=== PATIENT | male | born 1945 | race Caucasian/White ===

== ENCOUNTER 2017-05-21 22:36 | Emergency (ER) | payer MEDICARE, OTHER, BC ==
[~2017-05-21] VITALS: Ht 172.7 cm; Wt 109.5 kg
[~2017-05-21 22:36] MED LIST: ASPIRIN 32325 MG/TAB PO; CARDI-OMEGA1000 MG PO; DIABETA 5MG5 MG/TAB PO; GLUCOPHAGE500 MG/TAB PO; HCTZ 25MG TAB25 MG PO; LIPITOR 80MG80 MG PO; LOPRESSOR 225 MG/TAB PO; MIRALAX PA17 GM/Dose PO; NORVASC 10MG10 MG PO; PLAVIX 75MG TAB75 MG PO; PRINIVIL40 MG PO; TENORMIN 5050 MG/TAB PO
[2017-05-21 22:43] VITALS: TEMP 97
[2017-05-21] MEDS ORDERED: NITRO-DUR0.4 MG/PAT TD (23:09)
[2017-05-21] MEDS ORDERED: DEPAKENE250 MG PO (23:10)
[2017-05-21] MEDS ORDERED: LASIX 20MG TABL20 MG PO (23:10)
[2017-05-21] MEDS ORDERED: VITAMIN C500 MG PO (23:11)
[2017-05-21] MEDS ORDERED: MELAT3MGTAB (23:11)
[2017-05-21] MEDS ORDERED: LEVEMIR100 U/ML SQ (23:12)
[2017-05-21 23:40] LABS: BASO # 0.1 (0.0-0.2); BASO % 0.6 % (0.0-2.0); EOS # 0.4 (0.0-0.7); EOS % 4.1 % (0-4.0); GRAN # 5.1 (1.4-6.5); GRAN % 49.8 % (42.2-75.2); HEMOGLOBIN 14.2 g/dl (13.5-18.0); LYMPH # 3.7 (1.2-3.4); LYMPH % 36.3 % (20.0-51.0); MEAN CELL VOLUME 92 fl (80.0-100.0); MEAN CORPUSCULAR HEMOGLOBIN 30 pg (27.0-31.0); MEAN CORPUSCULAR HGB CONC 32 g/dl (33.0-37.0); MONO # 0.9 (0.1-0.6); MONO % 8.9 % (1.7-9.3); PLATELET COUNT 242 K/mm3 (130-400); REDCELL DISTRIBUTION WIDTH-CV 14.4 % (11.5-14.5)
[2017-05-22] LABS: ALBUMIN 4.4 gm/dL (3.5-5.0); BILIRUBIN,TOTAL 0.4 mg/dL (0.0-1.0); C-REACTIVE PROTEIN 0.6 mg/dL (0.0-0.9); CALCIUM 9.9 mg/dL (8.4-10.2); CREATININE, serum 1.1 mg/dL (0.66-1.25); POTASSIUM 5.4 mmol/L (3.4-5.0); TOTAL PROTEIN 7.6 gm/dL (6.4-8.2)
[2017-05-22] MEDS ORDERED: NORCO 325 MG-51 TAB PO (02:15)
[2017-05-22] MEDS ORDERED: VOLTAREN 75 DR75 MG PO (02:15)
[2017-05-22 02:30] VITALS: BP 140/79; PULSE 58
[2017-05-22] MEDS ORDERED: PERCOCET 325 MG1 TA3 PO (19:50)
== END 2017-05-22 02:38 | disposition home or self-care (01) ==
LOC: COL.ER 22:36
PROVIDERS: Emergency Medicine
DX: M54.5 Low back pain (principal); E11.65 Type 2 diabetes mellitus with hyperglycemia; E87.5 Hyperkalemia; I10 Essential (primary) hypertension; E78.5 Hyperlipidemia, unspecified; Z95.5 Presence of coronary angioplasty implant and graft; Z86.73 Personal history of transient ischemic attack (TIA), and cerebral infarction without residual deficits; Z87.891 Personal history of nicotine dependence; Z79.82 Long term (current) use of aspirin; Z79.4 Long term (current) use of insulin
CPT/HCPCS: J1815; J1885; J2360; J2765; J3010; J7040

== ENCOUNTER 2017-05-22 18:02 | Emergency (ER) | payer MEDICARE, OTHER, BC ==
[~2017-05-22] VITALS: Ht 188 cm; Wt 109.5 kg
[~2017-05-22 18:02] MED LIST changes: +DEPAKENE250 MG PO; +LASIX 20MG TABL20 MG PO; +LEVEMIR100 U/ML SQ; +MELAT3MGTAB; +NITRO-DUR0.4 MG/PAT TD; +NORCO 325 MG-51 TAB PO; +VITAMIN C500 MG PO; +VOLTAREN 75 DR75 MG PO
[2017-05-22 18:11] VITALS: TEMP 97
[2017-05-22 19:01] LABS: BASO # 0.1 (0.0-0.2); BASO % 0.4 % (0.0-2.0); EOS # 0.5 (0.0-0.7); EOS % 4.1 % (0-4.0); HEMATOCRIT 41.3 % (42.0-52.0); HEMOGLOBIN 13.5 g/dl (13.5-18.0); LYMPH # 3.9 (1.2-3.4); LYMPH % 33.4 % (20.0-51.0); MEAN CELL VOLUME 92 fl (80.0-100.0); MEAN CORPUSCULAR HEMOGLOBIN 30 pg (27.0-31.0); MEAN CORPUSCULAR HGB CONC 33 g/dl (33.0-37.0); MEAN PLATELET VOLUME 9.9 fl (7.4-10.4); MONO # 1.1 (0.1-0.6); MONO % 9.8 % (1.7-9.3); PLATELET COUNT 217 K/mm3 (130-400); RED BLOOD COUNT 4.48 M/mm3 (4.20-5.60); REDCELL DISTRIBUTION WIDTH-CV 14.6 % (11.5-14.5)
[2017-05-22 19:14] LABS: COLLECTION METHOD CLEAN CATCH
[2017-05-22 19:21] LABS: ALBUMIN 4.1 gm/dL (3.5-5.0); BILIRUBIN,TOTAL 0.4 mg/dL (0.0-1.0); C-REACTIVE PROTEIN 0.6 mg/dL (0.0-0.9); CALCIUM 9.4 mg/dL (8.4-10.2); CREATININE, serum 1.22 mg/dL (0.66-1.25); POTASSIUM 4.4 mmol/L (3.4-5.0); TOTAL PROTEIN 7.1 gm/dL (6.4-8.2)
[2017-05-22 19:21] LABS: HYALINE CAST >12 /lpf; MUCOUS Present /lpf; PH 5 (5-8); SQUAMOUS EPITHELIAL 0-2 /hpf; URINE APPEARANCE Clear; URINE BACTERIA None Seen /hpf; URINE BILIRUBIN Negative (NEGATIVE); URINE BLOOD Negative (NEGATIVE); URINE COLOR Yellow; URINE GLUCOSE 2+ (NEGATIVE); URINE KETONE Negative (NEGATIVE); URINE LEUKOCYTE ESTERASE Negative (NEGATIVE); URINE NITRATE Negative (NEGATIVE); URINE PROTEIN(semi-quant) Negative (NEGATIVE); URINE UROBILINOGEN Negative (NEGATIVE)
[2017-05-22] MEDS ORDERED: PERCOCET 325 MG1 TA3 PO (19:50)
[2017-05-22 20:43] VITALS: PULSE 76
== END 2017-05-22 20:43 | disposition home or self-care (01) ==
LOC: COL.ER 18:02
PROVIDERS: Family Medicine
DX: M54.5 Low back pain (principal); I48.91 Unspecified atrial fibrillation; E11.9 Type 2 diabetes mellitus without complications; I10 Essential (primary) hypertension; Z86.73 Personal history of transient ischemic attack (TIA), and cerebral infarction without residual deficits; Z79.82 Long term (current) use of aspirin; Z79.4 Long term (current) use of insulin
CPT/HCPCS: J1170; J2405; J2550; J7030

== ENCOUNTER 2024-02-16 18:15 | Emergency (ER) | payer MEDICARE, BC ==
[~2024-02-16] VITALS: Ht 188 cm; Wt 109.5 kg
[~2024-02-16 18:15] MED LIST changes: +PERCOCET 325 MG1 TA3 PO
[2024-02-16 18:25] VITALS: TEMP 97.7
[2024-02-16] MEDS ORDERED: Acetaminophen 325 MG TAB PO ONE (19:45)
[2024-02-16] MEDS ORDERED: Ketorolac 60 MG/2 ML VIAL IM ONE (19:45)
[2024-02-16] MEDS ORDERED: Cyclobenzaprine 10 MG TAB PO ONE (19:45)
[2024-02-16] MEDS ORDERED: FLEXERIL 1010 MG/TAB PO (20:33)
[2024-02-16 20:50] VITALS: BP 176/84; PULSE 67
== END 2024-02-16 20:45 | disposition home or self-care (01) ==
LOC: COL.ER 18:15
DX: M62.830 Muscle spasm of back (principal); Z95.9 Presence of cardiac and vascular implant and graft, unspecified
CPT/HCPCS: J1885

== ENCOUNTER 2024-02-27 15:36 | Inpatient (IN) | payer MEDICARE, BC ==
[~2024-02-27] VITALS: Ht 5.1 cm; Wt 112.0 kg
--- NOTE | 2024-02-27 00:15 | NUR ---
Did talk to David MOORE about med rec/ ER said it was completed but when i was finally able to look at it , it was not correct according to [place] records-- changed and corrected at this time, it did then change some of the meds the had already ordered-- Dr ok to change according to [place] med record. Also asked about blood sugars since pt is diabetic, ordered ac/hs,, I did get a blood sugar earlier and it was 64/pt was already eating a sandwich /pudding-did not have supper-- repeat was 100. David MOORE aware.
[~2024-02-27 15:36] MED LIST changes: +FLEXERIL 1010 MG/TAB PO
[2024-02-27] MEDS ORDERED: fentaNYL 50 MCG/ML 2 ML VIAL IV ONE ×2 (15:45→17:45)
[2024-02-27] MEDS ORDERED: NS 1,000 ML IV ONE (15:45)
[2024-02-27 16:40] LABS: BASO % 0.3 % (0.0-2.0); EOS # 0.3 K/mm3 (0.0-0.7); GRAN # 5.7 K/mm3 (1.4-6.5); GRAN % 54.5 % (42.2-75.2); HEMATOCRIT 38.5 % (42.0-52.0); HEMOGLOBIN 12.7 g/dl (13.5-18.0); LYMPH # 3.4 K/mm3 (1.2-3.4); MEAN CELL VOLUME 91 fl (80.0-100.0); MEAN CORPUSCULAR HEMOGLOBIN 30 pg (27-31); MEAN CORPUSCULAR HGB CONC 33 g/dl (33.0-37.0); MEAN PLATELET VOLUME 9.6 fl (7.4-10.4); MONO % 9.9 % (1.7-9.3); PLATELET COUNT 204 K/mm3 (130-400); RED BLOOD COUNT 4.24 M/mm3 (4.20-5.60); REDCELL DISTRIBUTION WIDTH-CV 16.2 % (11.5-14.5)
[2024-02-27 16:44] LABS: INR 2.5 (0.8-3.0); PROTHROMBIN TIME 26.6 SECONDS (9.7-12.8)
[2024-02-27 17:02] LABS: COLLECTION METHOD CLEAN CATCH
[2024-02-27 17:03] LABS: ALBUMIN 3.6 g/dL (3.4-4.8); BILIRUBIN,TOTAL 0.5 mg/dL (0.2-1.2); CALCIUM 9.7 mg/dL (8.4-10.2); CREATININE, serum 1.41 mg/dL (0.72-1.25); POTASSIUM 4.7 mEq/L (3.5-4.5); TOTAL PROTEIN 7.2 g/dl (6.2-8.1)
[2024-02-27 17:09] LABS: TROPONIN-I 0.025 ng/mL (0.00-0.033)
[2024-02-27 17:12] LABS: PH 5.5 (5.0-8.5); URINE APPEARANCE CLEAR (CLEAR/HAZY); URINE BLOOD 1+ (NEGATIVE); URINE COLOR YELLOW (YELLOW); URINE GLUCOSE NEGATIVE (NEGATIVE); URINE KETONE NEGATIVE (NEGATIVE); URINE NITRATE NEGATIVE (NEGATIVE); URINE PROTEIN(semi-quant) TRACE (NEGATIVE); URINE UROBILINOGEN 0.2 E.U/dL (0.2-1.0)
[2024-02-27] MEDS ORDERED: cefTRIAXone 1 G in Water For Injection,Sterile 10 ML IV ONE (17:30)
[2024-02-27] MEDS ORDERED: COREG12.5 MG PO (18:29)
[2024-02-27] MEDS ORDERED: XARELTO15 MG PO (18:39)
[2024-02-27] MEDS ORDERED: ZETIA 10MG TAB10 MG PO (18:40)
[2024-02-27] MEDS ORDERED: FLOMAX 0.40.4 MG/CAP PO (18:40)
[2024-02-27] MEDS ORDERED: FLEXERIL 1010 MG/TAB PO (18:41)
[2024-02-27] MEDS ORDERED: LANTUS100 U/ML SQ (18:42)
[2024-02-27] MEDS ORDERED: Melatonin 3 MG TAB PO PRN (18:45)
[2024-02-27] MEDS ORDERED: Ondansetron 4 MG/2 ML VIAL IV PRN (18:45)
[2024-02-27] MEDS ORDERED: fentaNYL 50 MCG/ML 2 ML VIAL IV PRN (18:45)
[2024-02-27] MEDS ORDERED: hydrALAZINE 20 MG/ML 1 ML VIAL IV PRN (19:00)
[2024-02-27] MEDS ORDERED: Ketorolac 15 MG/ML VIAL IV SCH (20:00)
[2024-02-27 20:31] VITALS: BP 168/92; PULSE 79; TEMP 97.6
[2024-02-27] MEDS ORDERED: Famotidine 20 MG TAB PO SCH (21:00)
[2024-02-27] MEDS ORDERED: Methocarbamol 750 MG TAB PO SCH (21:00)
[2024-02-27] MEDS ORDERED: Atorvastatin 80 MG TAB PO SCH (21:00)
[2024-02-27] MEDS ORDERED: Carvedilol 6.25 MG TAB PO SCH (21:00)
--- NOTE | 2024-02-27 21:00 | NUR ---
Admitted to medical floor from ER, VSS, B/P slightly high - will give something for pain and also has b/p med to be given. Apresoline not given at this time- will wait for next B/P. Alert,oriented x4, pleasant, speech slightly slurred, has had stroke in the past and right side is very weak/flaccid,, lives at [facility] and uses jayson lift to sit up in chair . States his back pain is 5 /10 with any movement- does moan with any turning. Has skin tear to left elbow-mepilex on, coccyx is slightly red with some flaking skin, no open areas, various bruises to arms. has edema to lower extremities. using urinal to void. glasses at bedside.
[2024-02-27 22:00] VITALS: BP_SYST 168
[2024-02-27] MEDS ORDERED: ASPIRIN 81M81 MG/TA2 PO (23:02)
[2024-02-27] MEDS ORDERED: K-TAB20 PO (23:07)
[2024-02-27] MEDS ORDERED: TYLENOL 500MG500 MG PO (23:14)
[2024-02-27 23:57] VITALS: BP 143/80; PULSE 68; TEMP 97.9
[2024-02-28] VITALS (11 sets, daily range): BP systolic 143–169; BP diastolic 76–84; PULSE 58–69; TEMP 97.4–97.9
[2024-02-28] MEDS ORDERED: Dextrose (Glucose) 15 GM (4 x 3.75 GM) Chewable TABLET PACK PO PRN (00:45)
[2024-02-28] MEDS ORDERED: Glucagon 1 MG VIAL IM PRN (00:45)
[2024-02-28] MEDS ORDERED: Dextrose 50% Water 25 GM/50 ML SYRINGE IV PRN (00:45)
--- NOTE | 2024-02-28 06:00 | NUR ---
Overall had a good night- VSS, thought he needed to have a bowel movement , did put him on bedpan but no results,, getting Toradol IV and fentanyl IV as needed for back pain, voiding well per urinal.
[2024-02-28 06:27] LABS: BASO % 0.4 % (0.0-2.0); EOS # 0.3 K/mm3 (0.0-0.7); GRAN # 5.1 K/mm3 (1.4-6.5); GRAN % 55.2 % (42.2-75.2); HEMOGLOBIN 11.5 g/dl (13.5-18.0); LYMPH # 2.8 K/mm3 (1.2-3.4); LYMPH % 30.5 % (20.0-51.0); MEAN CELL VOLUME 89 fl (80.0-100.0); MEAN CORPUSCULAR HEMOGLOBIN 30 pg (27-31); MEAN CORPUSCULAR HGB CONC 34 g/dl (33.0-37.0); MEAN PLATELET VOLUME 9.5 fl (7.4-10.4); MONO % 10.7 % (1.7-9.3); PLATELET COUNT 179 K/mm3 (130-400); RED BLOOD COUNT 3.87 M/mm3 (4.20-5.60)
[2024-02-28 06:41] LABS: CALCIUM 9.1 mg/dL (8.4-10.2); CREATININE, serum 1.21 mg/dL (0.72-1.25); POTASSIUM 4.4 mEq/L (3.5-4.5)
[2024-02-28 06:42] LABS: HEMATOCRIT 34.3 % (42.0-52.0)
[2024-02-28] MEDS ORDERED: Insulin Lispro (HumaLOG) SQ SCH (08:00)
--- NOTE | 2024-02-28 08:41 | NUR ---
Patient resting in bed, hygiene is provided by CNAs, alert and oriented x 4, VSS. States pain in his pietro /, scheduled med given. Assessment compelted, meds given. No further needs at this time. Awaiting for breakfast. Call light within reach.
[2024-02-28] MEDS ORDERED: amLODIPine 5 MG TAB PO SCH (09:00)
[2024-02-28] MEDS ORDERED: Rivaroxaban 15 MG TAB PO SCH (09:00)
[2024-02-28] MEDS ORDERED: Aspirin 325 MG TAB PO SCH (09:00)
[2024-02-28] MEDS ORDERED: amLODIPine 10 MG TAB PO SCH (09:00)
[2024-02-28] MEDS ORDERED: Furosemide 20 MG TAB PO SCH (09:00)
[2024-02-28] MEDS ORDERED: Lidocaine 4% Topical Patch TP SCH (09:58)
[2024-02-28] MEDS ORDERED: traMADol 50 MG TAB PO PRN (10:15)
--- NOTE | 2024-02-28 10:36 | NUR ---
SW met with patient to complete intake and discuss discharge planning. Patient confirmed that he resides at [facility]; his PCP care is with [place] but could not recall PCP and [facility]. Patient is currently is [place] (Leslye Bird [phone]) she was available via phone she confirmed that he does use wheelchair, and has a lift at home but she does not recall them having a the [place] [facility]. Patient needs assisted with his ADLs. Patient and his both report no DPOA was provided information about forms with hospital if interested. Current plan at discharge is back to [facility] pending further medical recommendations.
--- NOTE | 2024-02-28 12:34 | NUR ---
Data: Patient's Daughter Maritza accepted spiritual care visit offered during Glass Bulb Machine Adjuster rounds. Son Lj also visiting. Life review. 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 Assessment: Patient emotional at time, but overall seemed grateful for the visit. Plan of Care: Glass Bulb Machine Adjuster provided supportive listening; a devotional; a bible; scripture reading; and prayer. Chaplains will remain available as needed/requested while Patient is admitted to this hospital. All three thanked Glass Bulb Machine Adjuster for the visit.
[2024-02-28] MEDS ORDERED: Acetaminophen 325 MG TAB PO SCH (14:00)
--- NOTE | 2024-02-28 14:59 | NUR ---
Patient resting in bed, watching TV. States pain 7/10. Scheduled pain med provided.
[2024-02-28] MEDS ORDERED: cefTRIAXone 2 G in Water For Injection,Sterile 20 ML IV SCH (18:00)
--- NOTE | 2024-02-28 19:20 | NUR ---
Patient has been stable along the day. Getting his schedule pain meds and antibiotics. Right now watching TV. Report given to BRUCE Jacobs.
--- NOTE | 2024-02-28 20:30 | NUR ---
Initial shift assessment done- states back pain 09/18, due for toradol and tylenol at this time, states it is overall getting better, voiding per urinal -clear yellow urine. denies need for HS snack tonight- watching some TV.
[2024-02-29] VITALS (14 sets, daily range): BP systolic 130–174; BP diastolic 74–96; PULSE 66–89; TEMP 97.4–98.2
--- NOTE | 2024-02-29 02:30 | NUR ---
Has not slept at all tonight, doing games on his tablet/no requests, was concerned about his wheelchair?, I told him there was no wheel chair when he was admitted the previous night . Pt was a little confused about when he came to hospital//reoriented - Did get another dose of Toradol IV as ordered and also was given apresoline for B/P 167/75.
[2024-02-29 06:19] LABS: BASO % 0.3 % (0.0-2.0); EOS # 0.3 K/mm3 (0.0-0.7); EOS % 3.1 % (0.0-4.0); GRAN # 6.4 K/mm3 (1.4-6.5); GRAN % 62.3 % (42.2-75.2); HEMATOCRIT 38.3 % (42.0-52.0); HEMOGLOBIN 12.7 g/dl (13.5-18.0); LYMPH # 2.5 K/mm3 (1.2-3.4); LYMPH % 24.6 % (20.0-51.0); MEAN CELL VOLUME 89 fl (80.0-100.0); MEAN CORPUSCULAR HEMOGLOBIN 30 pg (27-31); MEAN CORPUSCULAR HGB CONC 33 g/dl (33.0-37.0); MEAN PLATELET VOLUME 10.3 fl (7.4-10.4); MONO % 9.5 % (1.7-9.3); PLATELET COUNT 181 K/mm3 (130-400); RED BLOOD COUNT 4.29 M/mm3 (4.20-5.60); REDCELL DISTRIBUTION WIDTH-CV 16.2 % (11.5-14.5)
[2024-02-29 06:37] LABS: CALCIUM 9.5 mg/dL (8.4-10.2); CREATININE, serum 1.18 mg/dL (0.72-1.25); POTASSIUM 4.4 mEq/L (3.5-4.5)
--- NOTE | 2024-02-29 07:00 | NUR ---
PT RESTING IN BED. PT IS ON RA. PT IS NON TELE. PT IS ALERT BUT CONFUSED. PT REORIENTED. PT IS A FALL RISK AND IN FALL PRECAUTIONS. BEDALARM ACTIVE.
[2024-02-29] MEDS ORDERED: Acetaminophen 500 MG TAB PO SCH (14:00)
--- NOTE | 2024-02-29 17:35 | NUR ---
1340-SPOKE WITH GEOFF MOORE REGARDING PTS AMS AND CONFUSION. PT IS AXOX2-3 BUT FORGETFUL OF LOCATION AND SITUATION. PT FREQUENTLY REORIENTED. FALL PRECAUTIONS IN PLACE. DISCUSSED HIS PAIN MEDIATIONS. ORDERS CHANGED BY GEOFF MOORE.
--- NOTE | 2024-02-29 21:46 | NUR ---
Patient assessed around 1999. Alert and oriented, and able to make needs known. Reports level 8 pain to back. Given scheduled medications and PRN Ultram as requested. Denies SOB and dyspnea. LS CTA in upper lobes, diminished in lower. HRR. BSAx4. Voices no questions, needs, or concerns at this time. In bed with call light within reach. High fall risk precautions in place. Bed alarm on.
[2024-03-01 03:57] VITALS: BP 136/79; PULSE 66; TEMP 97.9
[2024-03-01 05:20] VITALS: BP_SYST 136
--- NOTE | 2024-03-01 06:30 | NUR ---
PT SLEEPING IN BED. PT IS ON RA. PT IS NOT ON TELE. PT IS A FAL RISK, FALL PRECAUTIONS IN PLACE. CALL LIGHT WITHIN REACH AND BED ALARM ACTIVE.
--- NOTE | 2024-03-01 06:38 | NUR ---
Patient did not request any further pain medication this shift. Plan for MRI this morning. Voices no questions, needs, or concerns at this time. In bed with call light within reach. High fall risk precautions in place. Bed alarm on.
[2024-03-01 07:09] LABS: BASO % 0.4 % (0.0-2.0); EOS # 0.3 K/mm3 (0.0-0.7); EOS % 3.1 % (0.0-4.0); GRAN # 4.6 K/mm3 (1.4-6.5); GRAN % 54.4 % (42.2-75.2); HEMATOCRIT 38.2 % (42.0-52.0); HEMOGLOBIN 12.6 g/dl (13.5-18.0); LYMPH # 2.6 K/mm3 (1.2-3.4); LYMPH % 31.1 % (20.0-51.0); MEAN CELL VOLUME 88 fl (80.0-100.0); MEAN CORPUSCULAR HEMOGLOBIN 29 pg (27-31); MEAN CORPUSCULAR HGB CONC 33 g/dl (33.0-37.0); MEAN PLATELET VOLUME 9.4 fl (7.4-10.4); MONO # 0.9 K/mm3 (0.1-0.6); MONO % 10.8 % (1.7-9.3); PLATELET COUNT 197 K/mm3 (130-400); RED BLOOD COUNT 4.33 M/mm3 (4.20-5.60); REDCELL DISTRIBUTION WIDTH-CV 16.3 % (11.5-14.5)
[2024-03-01 07:29] LABS: CALCIUM 9.5 mg/dL (8.4-10.2); CREATININE, serum 1.44 mg/dL (0.72-1.25); POTASSIUM 4.2 mEq/L (3.5-4.5)
[2024-03-01 07:58] VITALS: BP 158/82; PULSE 70; TEMP 98
[2024-03-01 09:05] VITALS: BP_SYST 158
[2024-03-01] MEDS ORDERED: LIPITOR 80MG80 MG PO (09:40)
--- NOTE | 2024-03-01 09:58 | NUR ---
Initial visit; Patient appears to be uncomfortable. Nurse came in so Heddler Tier wished him well and offered God's blessings.
--- NOTE | 2024-03-01 12:15 | NUR ---
JOSE MIGUEL attended clinical rounds. JOSE MIGUEL received call from Robson at [facility] requesting clinical updates be sent for review. Per Robson, patient was at [facility] on respite care and will now qualify for skilled care. JOSE MIGUEL Becerril sent clinical information to Robson for review. Discharge plan: [facility]
[2024-03-01 13:00] VITALS: BP_SYST 158
[2024-03-01] MEDS ORDERED: BLUE-EMU LIDOC1 EACH TP (14:59)
[2024-03-01] MEDS ORDERED: CIPRO 500MG TA500 MG PO (15:03)
[2024-03-01] MEDS ORDERED: ULTRAM 50MG TAB50 MG PO (15:04)
--- NOTE | 2024-03-01 15:47 | NUR ---
JOSE MIGUEL notified by attending that patient is stable for discharge to return to [facility] today. JOSE MIGUEL spoke with Rosbon at [facility] who states they can transport patient at 1600. RN notified. JOSE MIGUEL met with patient and daughter to review Medicare IM form. Patient voiced understanding and agreement with discharge. He asked that his daughter sign form. Original on chart, copy to patient. Discharge packet and orders sent to [facility]. Discharge plan: [facility]
--- NOTE | 2024-03-01 17:11 | NUR ---
1548 ATTEMPTED TO CALL REPORT TO [facility]. NO ANSWER AND MESSAGE LEFT. 1555 [facility] HERE FOR DISCHARGE TRANSPORT. SECOND NUMBER RECEIVED FROM TRANSPORT FOR REPORT. 1600 ATTEMPTED TO CALL REPORT TO NEW NUMBER AT [facility]. NO ANSWER. MESSAGE LEFT. 1610 PT DISCHARGED TO [facility] BY THEIR TRANSPORT. 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
--- NOTE | 2024-03-01 18:11 | NUR ---
1215-CALLED PTS TO FILL OUT MRI SCREENING FORM.
== END 2024-03-01 16:15 | DRG 552 ==
LOC: COL.ER 15:36 → MEDICAL 19:05
PROVIDERS: Family Medicine; Physician Assistant; ADMIT Internal Medicine
DX: M51.369 Other intervertebral disc degeneration, lumbar region without mention of lumbar back pain or lower extremity pain (principal); N39.0 Urinary tract infection, site not specified; N17.9 Acute kidney failure, unspecified; B95.2 Enterococcus as the cause of diseases classified elsewhere; I10 Essential (primary) hypertension; I48.91 Unspecified atrial fibrillation; Z79.01 Long term (current) use of anticoagulants; E11.9 Type 2 diabetes mellitus without complications; Z79.84 Long term (current) use of oral hypoglycemic drugs; Z86.73 Personal history of transient ischemic attack (TIA), and cerebral infarction without residual deficits; E78.5 Hyperlipidemia, unspecified; N40.0 Benign prostatic hyperplasia without lower urinary tract symptoms
CPT/HCPCS: J0360; J0696; J1815; J1885; J3010; J7030